=== PATIENT | male | born 1950 | race Caucasian/White ===

== ENCOUNTER → 2016-10-25 | Outpatient (CLI) | payer MEDICARE, BC ==
[~2016-10-25] MED LIST: ACETAMINOPHEN W1 TA6 PO; ASPIRIN 32325 MG/TAB PO; CLARITIN 1010 MG/TAB PO; CLARITIN REDITA10 MG PO; CO Q-1010 M1 PO; COREG 3.123.125 MG/T PO; COREG 6.256.25 MG/TA PO; COREG12.5 MG PO; COZAAR 25MG25 MG/TAB PO; DOXYCYCLINE 10100 MG PO; GLUCOPHAGE XR500 M1 PO; GLUCOPHAGE1000 MG PO; GLUCOPHAGE500 MG/TAB PO; IBUPROFEN400 MG PO; LASIX 20MG TABL20 MG PO; LEVAQUIN 5500 MG/TA1 PO; METOPROLOL SUCC25 MG PO; MOTRIN 600600 MG/TAB PO; MUCINEX 60600 MG/TA1 PO; NITROSTAT0.4 MG SL; PRINIVIL2.5 MG PO; PRINIVIL5 MG PO; THE MEDICINE S200 M2 PO; TOPROL XL 25MG25 MG PO; VASOTEC 2.2.5 MG/TAB PO; ZETIA10 MG PO; ZITHROMAX 250M250 MG PO; ZOCOR 10MG10 MG PO; ZOCOR 20MG20 MG PO
== END ==
LOC: COL.RAD 10:02
DX: M75.121 Complete rotator cuff tear or rupture of right shoulder, not specified as traumatic (principal); M19.011 Primary osteoarthritis, right shoulder; M25.511 Pain in right shoulder; R06.02 Shortness of breath

== ENCOUNTER 2018-05-19 14:48 | Outpatient (RCR) | payer SELFPAY | END 2018-05-20 | disposition home or self-care (01) | LOC: COL.CR | DX: Z02.9 Encounter for administrative examinations, unspecified (principal) ==

== ENCOUNTER 2018-08-18 13:12 | Outpatient (RCR) | payer SELFPAY | END 2018-08-19 | disposition home or self-care (01) | LOC: COL.CR | DX: Z02.9 Encounter for administrative examinations, unspecified (principal) ==

== ENCOUNTER 2018-11-17 15:31 | Outpatient (RCR) | payer SELFPAY | END 2018-11-18 | disposition home or self-care (01) | LOC: COL.CR | DX: Z02.89 Encounter for other administrative examinations (principal) ==

== ENCOUNTER 2019-02-16 13:04 | Outpatient (RCR) | payer SELFPAY | END 2019-02-17 | disposition home or self-care (01) | LOC: COL.CR | DX: Z02.89 Encounter for other administrative examinations (principal) ==

== ENCOUNTER → 2019-03-17 | Outpatient (CLI) | payer MEDICARE, BC | LOC: COL.RAD 09:45 | DX: M51.36 Other intervertebral disc degeneration, lumbar region (principal); M48.07 Spinal stenosis, lumbosacral region ==

== ENCOUNTER → 2019-04-07 | Outpatient (CLI) | payer MEDICARE, BC | LOC: COL.RAD 06:57 | DX: M46.86 Other specified inflammatory spondylopathies, lumbar region (principal) | CPT/HCPCS: J3301 ==

== ENCOUNTER 2019-05-18 15:06 | Outpatient (RCR) | payer SELFPAY | END 2019-05-19 | disposition home or self-care (01) | LOC: COL.CR | DX: Z02.89 Encounter for other administrative examinations (principal) ==

== ENCOUNTER 2019-08-17 15:56 | Outpatient (RCR) | payer SELFPAY | END 2019-08-18 | disposition home or self-care (01) | LOC: COL.CR | DX: Z02.89 Encounter for other administrative examinations (principal) ==

== ENCOUNTER 2019-11-11 13:06 | Outpatient (RCR) | payer SELFPAY | END 2019-11-17 | disposition home or self-care (01) | LOC: COL.CR | DX: Z02.89 Encounter for other administrative examinations (principal) ==

== ENCOUNTER 2019-12-23 11:01 | Outpatient (RCR) | payer SELFPAY ==
[2019-12-25] MEDS ORDERED: ZYRTEC ALLERGY10 MG PO (11:34)
[2019-12-25] MEDS ORDERED: SINGULAIR 110 MG/TAB PO (11:34)
[2019-12-25] MEDS ORDERED: GLUCOTROL XL2.5 MG PO (11:35)
[2019-12-25] MEDS ORDERED: ZOCOR 10MG10 MG PO (15:05)
[2019-12-25] MEDS ORDERED: ZETIA 10MG TAB10 MG PO (15:06)
[2019-12-26] MEDS ORDERED: BRILINTA90 MG PO (13:21)
[2019-12-26] MEDS ORDERED: ASPIRIN E.C. 8181 MG PO (13:22)
== END 2020-02-16 | disposition home or self-care (01) ==
LOC: COL.CR
DX: Z02.89 Encounter for other administrative examinations (principal)

== ENCOUNTER 2019-12-25 11:00 | Day surgery (SDC) | payer MEDICARE, BC ==
[~2019-12-25] VITALS: Ht 182.9 cm; Wt 109.7 kg
[2019-12-25] VITALS (10 sets, daily range): BP systolic 112–145; BP diastolic 64–90; PULSE 73–94; TEMP 97.5–98
[2019-12-25] MEDS ORDERED: SINGULAIR 110 MG/TAB PO (11:34)
[2019-12-25] MEDS ORDERED: ZYRTEC ALLERGY10 MG PO (11:34)
[2019-12-25] MEDS ORDERED: GLUCOTROL XL2.5 MG PO (11:35)
[2019-12-25 11:38] LABS: HEMATOCRIT 50.6 % (42.0-52.0); HEMOGLOBIN 16.8 g/dl (13.5-18.0); MEAN CELL VOLUME 96 fl (80.0-100.0); MEAN CORPUSCULAR HEMOGLOBIN 32 pg (27.0-31.0); MEAN CORPUSCULAR HGB CONC 33 g/dl (33.0-37.0); MEAN PLATELET VOLUME 9.7 fl (7.4-10.4); PLATELET COUNT 215 K/mm3 (130-400); RED BLOOD COUNT 5.28 M/mm3 (4.20-5.60); REDCELL DISTRIBUTION WIDTH-CV 13.2 % (11.5-14.5)
[2019-12-25 11:48] LABS: PROTHROMBIN TIME 11.1 SECONDS (9.7-12.8)
[2019-12-25 11:50] LABS: CALCIUM 9.5 mg/dL (8.4-10.2); CREATININE, serum 1.38 (0.66-1.25); POTASSIUM 4.2 mmol/L (3.4-5.0)
[2019-12-25 11:51] LABS: PARTIAL THROMBOPLASTIN TIME 29.8 SECONDS (26.0-37.0)
--- NOTE | 2019-12-25 13:01 | NUR ---
SEE MEREBETSY FOR ALL MEDICATION ADMIN TIMES AND INTRA/POST SEDATION ASSESSMENTS
--- NOTE | 2019-12-25 14:30 | NUR ---
Pt up to room 318 w/ at bedside. Pt A&O, independent in room. Pt has Rt radial site, CDI, no hematoma noted, good cap refill, TR band w/ 13cc of air on. LAC INT IV dc'd w/o complications. VS monitoring in progress. Pt provided w/ water and turkey sandwich to hold over until dinner.
[2019-12-25] MEDS ORDERED: ZOCOR 10MG10 MG PO (15:05)
[2019-12-25] MEDS ORDERED: ZETIA 10MG TAB10 MG PO (15:06)
--- NOTE | 2019-12-25 19:05 | NUR ---
Received report from Karolina. Seen patient walking around the room. He is alert and oriented. With arm band on his right radial. clean, dry and intact. Karolina just released 5 ml of air. Will conitnue to monitor for bleeding. With INT on left AC. Denies any pain.
--- NOTE | 2019-12-25 19:07 | NUR ---
173 Pt informed GATEKEEPER that he was ready to have band taken off. Air had not been removed from band at this time. This nurse walked into pt room, pt had removed TR band. No bleding noted at first, bandaid placed over site and then site started to bleed. Pressure held on site for 2 min and TR band placed back on and 133 cc air instilled. Pt educated on immportance of not removing air or band himself. Pt verbalized understanding. VSS have been stable, good cap refill. Bleeding had stopped. 1899 Report given to CELSO Living[place]. 5cc air removed from band, no bleeding noted. Good cap refill noted. No further needs expressed. Informed Pt that cnc machinist 2nd shift nurse would remove remaining air and to keep band on until she did.
--- NOTE | 2019-12-25 20:25 | NUR ---
Patient verbalized he is a bit jittery and needs something to help him sleep. This nurse called Dr. Love via phone call and he ordered Lizbeth.
--- NOTE | 2019-12-25 21:30 | NUR ---
Released air on patient's arm band. No bleeding noted. Arm band and splint removed. Applied bandaid.
[2019-12-26 00:20] VITALS: BP 133/78; PULSE 83; TEMP 98.6
[2019-12-26 03:28] VITALS: BP 123/75; PULSE 81; TEMP 98.6
--- NOTE | 2019-12-26 05:51 | NUR ---
Patient is already awake, sitting in the recliner. Right radial is clean, dry and intact. Bandaid still in place. Denies any pain. Will endorse to day shift nurse.
[2019-12-26 08:03] VITALS: BP 126/69; PULSE 79; TEMP 97.8
--- NOTE | 2019-12-26 08:08 | NUR ---
Patient is alert and oriented. denies any pain. Cardiac Cath insertion site - right radial is not bleeding, no redness or tenderness. patient verbalize readiness to go home
[2019-12-26 12:12] VITALS: BP 116/82; PULSE 77; TEMP 97.6
[2019-12-26] MEDS ORDERED: BRILINTA90 MG PO (13:21)
[2019-12-26] MEDS ORDERED: ASPIRIN E.C. 8181 MG PO (13:22)
--- NOTE | 2019-12-26 14:10 | NUR ---
there is no bleeding at cath insertion site. patient denies any complain or SOB. Vitals signs are stable. IV discontinued. recieved education about new medication. patient discharged.
== END 2019-12-26 13:55 | disposition home or self-care (01) ==
LOC: COL.CAR 11:00 → MEDICAL 14:46 → COL.CAR 12-26 13:55
PROVIDERS: Internal Medicine Cardiovascular Disease
DX: I25.10 Atherosclerotic heart disease of native coronary artery without angina pectoris (principal); I42.9 Cardiomyopathy, unspecified; I50.22 Chronic systolic (congestive) heart failure; I87.2 Venous insufficiency (chronic) (peripheral); R94.39 Abnormal result of other cardiovascular function study; Z79.82 Long term (current) use of aspirin; Z79.51 Long term (current) use of inhaled steroids; Z86.718 Personal history of other venous thrombosis and embolism; Z88.8 Allergy status to other drugs, medicaments and biological substances; Z83.3 Family history of diabetes mellitus; Z80.9 Family history of malignant neoplasm, unspecified
CPT/HCPCS: OP; C9600; J1644; J2250; J3010

== ENCOUNTER 2020-08-09 08:30 | Outpatient (RCR) | payer MEDICARE, BC ==
[~2020-08-09 08:30] MED LIST changes: +ASPIRIN E.C. 8181 MG PO; +BRILINTA90 MG PO; +GLUCOTROL XL2.5 MG PO; +SINGULAIR 110 MG/TAB PO; +ZETIA 10MG TAB10 MG PO; +ZYRTEC ALLERGY10 MG PO
== END 2020-08-17 09:51 | disposition home or self-care (01) ==
LOC: WSPT 08:30
DX: M48.02 Spinal stenosis, cervical region (principal)

== ENCOUNTER 2020-08-10 16:29 | Outpatient (RCR) | payer SELFPAY | END 2020-08-11 | disposition home or self-care (01) | LOC: COL.CR | DX: Z02.9 Encounter for administrative examinations, unspecified (principal) ==

== ENCOUNTER 2020-11-11 12:35 | Outpatient (RCR) | payer SELFPAY | END 2020-11-13 | disposition home or self-care (01) | LOC: COL.CR | DX: Z02.89 Encounter for other administrative examinations (principal) ==

== ENCOUNTER 2021-02-10 16:51 | Outpatient (RCR) | payer SELFPAY ==
[~2021-02-10 16:51] MED LIST changes: -NITROSTAT0.4 MG SL; +NITROSTAT0.4 MG/TAB SL
[2021-06-20] MEDS ORDERED: COREG 25MG25 MG/TAB PO (09:34)
[2021-06-20] MEDS ORDERED: LASIX 40MG TABL40 MG PO (09:35)
[2021-06-20] MEDS ORDERED: CRESTOR20 MG PO (09:37)
[2021-06-20] MEDS ORDERED: XARELTO10 MG PO (09:38)
[2021-06-20] MEDS ORDERED: KLONOPIN 1MG1 MG PO (09:39)
[2021-06-20] MEDS ORDERED: IMDUR 30MG30 MG/TAB PO (09:39)
[2021-06-20] MEDS ORDERED: TYLENOL W/COD1 UDTAB PO (09:40)
[2021-06-20] MEDS ORDERED: COZAAR 25MG25 MG/TAB PO (09:40)
== END 2021-02-12 | disposition still patient (30) ==
LOC: COL.CR
DX: Z02.89 Encounter for other administrative examinations (principal)

== ENCOUNTER 2021-05-17 16:22 | Outpatient (RCR) | payer SELFPAY ==
[2021-06-20] MEDS ORDERED: COREG 25MG25 MG/TAB PO (09:34)
[2021-06-20] MEDS ORDERED: LASIX 40MG TABL40 MG PO (09:35)
[2021-06-20] MEDS ORDERED: CRESTOR20 MG PO (09:37)
[2021-06-20] MEDS ORDERED: XARELTO10 MG PO (09:38)
[2021-06-20] MEDS ORDERED: KLONOPIN 1MG1 MG PO (09:39)
[2021-06-20] MEDS ORDERED: IMDUR 30MG30 MG/TAB PO (09:39)
[2021-06-20] MEDS ORDERED: TYLENOL W/COD1 UDTAB PO (09:40)
[2021-06-20] MEDS ORDERED: COZAAR 25MG25 MG/TAB PO (09:40)
== END 2021-05-18 | disposition home or self-care (01) ==
LOC: COL.CR
DX: Z02.89 Encounter for other administrative examinations (principal)

== ENCOUNTER 2021-12-29 12:57 | Outpatient (RCR) | payer SELFPAY ==
[~2021-12-29 12:57] MED LIST changes: +COREG 25MG25 MG/TAB PO; +CRESTOR20 MG PO; +IMDUR 30MG30 MG/TAB PO; +KLONOPIN 1MG1 MG PO; +LASIX 40MG TABL40 MG PO; +TYLENOL W/COD1 UDTAB PO; +XARELTO10 MG PO
== END 2022-01-04 ==
LOC: COL.CR
DX: Z29.8 Encounter for other specified prophylactic measures (principal)

== ENCOUNTER 2022-03-02 12:10 | Outpatient (RCR) | payer SELFPAY | END 2022-03-06 | LOC: COL.CR | DX: Z29.8 Encounter for other specified prophylactic measures (principal) ==

== ENCOUNTER 2022-04-04 14:56 | Outpatient (RCR) | payer SELFPAY | END 2022-04-05 | LOC: COL.CR | DX: Z29.8 Encounter for other specified prophylactic measures (principal) ==

== ENCOUNTER 2022-04-27 15:16 | Outpatient (RCR) | payer SELFPAY | END 2022-05-06 | LOC: COL.CR | DX: Z29.8 Encounter for other specified prophylactic measures (principal) ==

== ENCOUNTER → 2022-06-06 | Outpatient (RCR) | payer SELFPAY ==
[~2022-06-06] MED LIST changes: +JARDIANCE10; +SINGULAIR 110 MG/TAB; +XARELTO STARTER20 MG PO
== END ==
LOC: COL.CR
DX: Z29.8 Encounter for other specified prophylactic measures (principal)

== ENCOUNTER 2022-06-18 14:20 | Inpatient (IN) | payer MEDICARE, BC ==
[~2022-06-18] VITALS: Ht 180.3 cm; Wt 112.2 kg
[~2022-06-18 14:20] MED LIST changes: -JARDIANCE10; -SINGULAIR 110 MG/TAB; -XARELTO STARTER20 MG PO
[2022-06-18 14:58] LABS: BASO # 0.1 K/mm3 (0.0-0.2); BASO % 0.5 % (0.0-2.0); EOS # 0.2 K/mm3 (0.0-0.7); EOS % 1.3 % (0.0-4.0); GRAN # 8.5 K/mm3 (1.4-6.5); LYMPH # 1.8 K/mm3 (1.2-3.4); LYMPH % 15.5 % (20.0-51.0); MEAN CELL VOLUME 92 fl (80.0-100.0); MEAN CORPUSCULAR HGB CONC 34 g/dl (33.0-37.0); MEAN PLATELET VOLUME 10.4 fl (7.4-10.4); MONO % 8.4 % (1.7-9.3); PLATELET COUNT 154 K/mm3 (130-400); RED BLOOD COUNT 6.08 M/mm3 (4.20-5.60); REDCELL DISTRIBUTION WIDTH-CV 13.2 % (11.5-14.5)
[2022-06-18 15:00] LABS: HEMATOCRIT 55.7 % (42.0-52.0); MEAN CORPUSCULAR HEMOGLOBIN 31 pg (27-31)
[2022-06-18 15:12] LABS: INR 1.1 (0.8-3.0); PROTHROMBIN TIME 12.2 SECONDS (9.7-12.8)
[2022-06-18 15:29] LABS: CREATININE, serum 1.95 mg/dL (0.72-1.25); POTASSIUM 4.2 mmol/L (3.5-4.5)
[2022-06-18 15:30] LABS: BILIRUBIN,TOTAL 1.6 mg/dL (0.2-1.2); TOTAL PROTEIN 7.7 gm/dL (6.2-8.1); TROPONIN-I 0.023 ng/mL (0.00-0.033)
[2022-06-18 15:58] LABS: PARTIAL THROMBOPLASTIN TIME 33.9 SECONDS (26.0-37.0)
[2022-06-18 17:44] VITALS: BP 146/87; PULSE 89; TEMP 98
[2022-06-18] MEDS ORDERED: JARDIANCE10 ×2 (17:59→18:01)
[2022-06-18] MEDS ORDERED: SINGULAIR 110 MG/TAB (18:04)
--- NOTE | 2022-06-18 19:14 | NUR ---
Arrived to draw ABG, pt found on O2. Order states to do on room air after abulating to recreate SOA. Pt placed on room air, RN is going to ambulate pt and then call me to come draw ABG.
[2022-06-18 19:22] VITALS: BP 136/87; PULSE 100; TEMP 97.5
[2022-06-18 20:02] LABS: ARTERIAL BLD GAS O2 SATURATION 89.6 % (92-100); ARTERIAL BLD GAS TCO2 CT 23.8; ARTERIAL BLOOD GAS HCO3 22.8 meq/L (22-26); ARTERIAL BLOOD GAS PCO2 33.2 mmHg (35-45); ARTERIAL BLOOD GAS PO2 56.7 mmHg (80-100); ARTERIAL BLOOD GAS pH 7.46 (7.35-7.45)
--- NOTE | 2022-06-18 23:02 | NUR ---
PATIENT IN BED ON ROOM ENTRY. ALERT AND ORIENTED. C/O MODERATE LOW BACK PAIN AND CALL PLACED TO [facility] FOR TYLENOL. HS MEDS PER EMAR. REMAINS ON 3 L O2 VIA NC. L MEDINA REDDENED WITH SMALL SCAB NOTED. HEP XA WAS 1.09 AND WILL BE HELD FOR 2 HOURS AND RECHECKED AT 0100. DENIES ADDITIONAL NEEDS. CALL LIGHT IN PLACE.
[2022-06-19 00:17] VITALS: BP 138/91; PULSE 82; TEMP 97.5
[2022-06-19 04:32] LABS: COLLECTION METHOD CLEAN CATCH
[2022-06-19 04:33] VITALS: BP 133/79; PULSE 80; TEMP 97.9
[2022-06-19 04:41] LABS: SQUAMOUS EPITHELIAL None Seen /hpf (0-10); URINE BACTERIA None Seen /hpf (NONE SEEN); URINE RBC 0-2 /hpf (0-2)
[2022-06-19 04:42] LABS: PH 5.5 (5.0-8.5); URINE APPEARANCE Clear (CLEAR/HAZY); URINE BLOOD TRACE-INTACT (NEGATIVE); URINE COLOR Yellow (YELLOW); URINE GLUCOSE 3+ (NEGATIVE); URINE KETONE Negative (NEGATIVE); URINE NITRATE Negative (NEGATIVE); URINE PROTEIN(semi-quant) 1+ (NEGATIVE); URINE UROBILINOGEN 0.2 E.U/dL (0.2-1.0)
[2022-06-19 07:35] VITALS: BP 125/71; PULSE 83; TEMP 98.2
[2022-06-19 08:16] LABS: BASO # 0.1 K/mm3 (0.0-0.2); BASO % 0.9 % (0.0-2.0); EOS # 0.1 K/mm3 (0.0-0.7); EOS % 1.2 % (0.0-4.0); GRAN # 6.6 K/mm3 (1.4-6.5); GRAN % 71.1 % (42.2-75.2); LYMPH # 1.7 K/mm3 (1.2-3.4); LYMPH % 17.8 % (20.0-51.0); MEAN CELL VOLUME 93 fl (80.0-100.0); MEAN CORPUSCULAR HGB CONC 34 g/dl (33.0-37.0); MEAN PLATELET VOLUME 10.2 fl (7.4-10.4); MONO # 0.8 K/mm3 (0.1-0.6); MONO % 8.6 % (1.7-9.3); PLATELET COUNT 143 K/mm3 (130-400); RED BLOOD COUNT 6.17 M/mm3 (4.20-5.60); REDCELL DISTRIBUTION WIDTH-CV 13.4 % (11.5-14.5)
[2022-06-19 08:17] LABS: HEMATOCRIT 57.5 % (42.0-52.0); HEMOGLOBIN 19.4 g/dl (13.5-18.0); MEAN CORPUSCULAR HEMOGLOBIN 31 pg (27-31)
[2022-06-19 08:26] LABS: ALBUMIN 4.1 gm/dL (3.4-4.8); BILIRUBIN,TOTAL 1.9 mg/dL (0.2-1.2); CALCIUM 10.4 mg/dL (8.4-10.2); CREATININE, serum 1.89 mg/dL (0.72-1.25); POTASSIUM 4.4 mmol/L (3.5-4.5); TOTAL PROTEIN 8.1 gm/dL (6.2-8.1)
--- NOTE | 2022-06-19 09:19 | NUR ---
HEPARIN RESULTED WITH NO CHANGE IN RATE, RECHECK IN 6 HRS
--- NOTE | 2022-06-19 10:00 | NUR ---
PT UP WITH SBA, TO [employer] FOR VQ SCAN AT THIS TIME.. PT IS A/O X3 LUNGS CTA, BOWEL SOUNDS PRESENT. PT DENIES PAIN OR NEEDS AT THIS TIME.
[2022-06-19 12:20] VITALS: BP 110/61; PULSE 93; TEMP 98.2
--- NOTE | 2022-06-19 15:23 | NUR ---
bench worker helper met with patient to complete intake and discuss discharge plan. Upon entry, patient sitting on EOB with head down. Patient agrees to complete intake, but mood appears melancholy with a restricted affect. Patient verbalizes that he lives at home in [place] with his Ya. Patient is independent with his ADL's and utilizes a rollator walker to assist with mobility, however he is observed ambulating in the room freely with no devices. He reports to no home oxygen needs but is currently at 2L in room. PCP is and he utilizes [facility] for prescriptions with no cost difficulty. Patient reports that he does not have a DPOA-HC and denies offer to create one at this time. He is planning on returning home once medically ready. Discharge plan: Home with spouse
[2022-06-19 16:02] VITALS: BP 130/73; PULSE 87; TEMP 97.5
[2022-06-19 23:36] VITALS: BP 130/83; PULSE 81; TEMP 98.1
--- NOTE | 2022-06-20 00:39 | NUR ---
PATIENT ALERT AND ORIENTED X 4, WITH HEPARIN DRIP RUNNING AT 1800UNITS/HR, HEPXA RECHECKED AT 0230, COMPLAINED OF LOWER BACK PAIN TYLENOL GIVEN AT 2355, CLONAZEPAM GIVEN WELL PER REQUEST TO HELP HIM SLEEP, ON TELE SHOWING SR WITH PACS, NO FURTHER NEEDS OR CONCERNS AT THIS TIME, CALL LIGHT AND PERSONAL ITEMS WITHIN REACH.
[2022-06-20 05:14] VITALS: BP 145/89; PULSE 86
--- NOTE | 2022-06-20 05:15 | NUR ---
NOTIFIED BY STAFF NURSE THAT PATIENT WAS UP IN ROOM TRYING TO GET TO BATHROOM, HAD UNHOOKED HIS HEPARIN AND SEEMED CONFUSED. ON ASSESSMENT VSS, PATIENT ALERT TO SELF, BUT CONFUSED ABOUT SITUATION AND WHERE HE IS. STATES HE IS IN THE [employer] AND THAT QUIN[employer] MINOR IS THE PRESIDENT WHEN ASKED. CALL PLACED TO [facility] TO NOTIFY OF PATIENT CHANGE OF STATUS. PATIENT ASSISTED BACK TO CHAIR. CALL FROM [facility] AND ORDER FOR ABG. CALL TO RT AND AWAITING DRAW.
[2022-06-20 05:38] LABS: ARTERIAL BLD GAS O2 SATURATION 93.6 % (92-100); ARTERIAL BLD GAS TCO2 CT 25.2; ARTERIAL BLOOD GAS BASE EXCESS 0.2 (-2-2); ARTERIAL BLOOD GAS PCO2 37.1 mmHg (35-45); ARTERIAL BLOOD GAS PO2 69.3 mmHg (80-100); ARTERIAL BLOOD GAS pH 7.43 (7.35-7.45)
[2022-06-20 07:29] LABS: COLLECTION METHOD CLEAN CATCH
[2022-06-20 07:46] VITALS: BP 119/70; PULSE 89; TEMP 98.1
[2022-06-20 07:51] LABS: SQUAMOUS EPITHELIAL None Seen /hpf (0-10); URINE BACTERIA None Seen /hpf (NONE SEEN); URINE RBC 0-2 /hpf (0-2)
[2022-06-20 07:52] LABS: BASO # 0.1 K/mm3 (0.0-0.2); BASO % 0.8 % (0.0-2.0); EOS # 0.1 K/mm3 (0.0-0.7); EOS % 1.8 % (0.0-4.0); GRAN # 3.5 K/mm3 (1.4-6.5); GRAN % 57.3 % (42.2-75.2); LYMPH # 1.6 K/mm3 (1.2-3.4); LYMPH % 26.9 % (20.0-51.0); MEAN CELL VOLUME 93 fl (80.0-100.0); MEAN CORPUSCULAR HGB CONC 34 g/dl (33.0-37.0); MEAN PLATELET VOLUME 10.2 fl (7.4-10.4); MONO # 0.8 K/mm3 (0.1-0.6); MONO % 12.9 % (1.7-9.3); PLATELET COUNT 143 K/mm3 (130-400); RED BLOOD COUNT 5.88 M/mm3 (4.20-5.60); REDCELL DISTRIBUTION WIDTH-CV 13.2 % (11.5-14.5)
[2022-06-20 07:52] LABS: PH 5.5 (5-8); URINE APPEARANCE Clear (CLEAR/HAZY); URINE BLOOD TRACE-INTACT (NEGATIVE); URINE COLOR Yellow (YELLOW); URINE GLUCOSE 3+ (NEGATIVE); URINE KETONE Negative (NEGATIVE); URINE NITRATE Negative (NEGATIVE); URINE PROTEIN(semi-quant) TRACE (NEGATIVE); URINE UROBILINOGEN 0.2 (NEGATIVE)
[2022-06-20 07:54] LABS: HEMATOCRIT 54.4 % (42.0-52.0); HEMOGLOBIN 18.3 g/dl (13.5-18.0); MEAN CORPUSCULAR HEMOGLOBIN 31 pg (27-31)
[2022-06-20 08:07] LABS: CALCIUM 9.5 mg/dL (8.4-10.2); CREATININE, serum 1.74 mg/dL (0.72-1.25); MAGNESIUM 2.3 mg/dL (1.6-2.6); POTASSIUM 3.8 mmol/L (3.5-4.5)
--- NOTE | 2022-06-20 08:39 | NUR ---
PT UP INDEPENDENTLY IN ROOM. VOIDED THEN RETURNED TO BED. O2 SATS WERE MID 80'S ON 1LPNC INCREASED TO 3 L AND SATS INCREASED TO 98 %.
[2022-06-20] MEDS ORDERED: XARELTO STARTER20 MG PO ×2 (09:09→09:24)
--- NOTE | 2022-06-20 09:28 | NUR ---
Initial visit; Patient thanked Customer Relationship Specialist for stopping and stated that he is ready to go home. Customer Relationship Specialist offered empathy and God's blessings. Patient seems uncomfortable being here but appears to not have a diagnosis or is just not physically ready to be discharged. Prayerfully a Physician will help him reach his goal soon.
--- NOTE | 2022-06-20 10:25 | NUR ---
PT DOES NOT REQUIRE 02 WITH AMBULATION
--- NOTE | 2022-06-20 11:08 | NUR ---
DISCHARGE INSTRUCTIONS REVIEWED WITH PT AND . QUESTIONS SOLICITED AND ANSWERED. PT LEFT FLOOR BY WHEEL CHAIR WITH STAFF.
== END 2022-06-20 11:13 | disposition home or self-care (01) | DRG 189 ==
LOC: COL.ER 14:20 → SURG 15:40
PROVIDERS: Emergency Medicine; Internal Medicine Interventional Cardiology; Physician Assistant; Student in an Organized Health Care Education/Training Program; ADMIT Student in an Organized Health Care Education/Training Program
DX: J96.01 Acute respiratory failure with hypoxia (principal); N17.9 Acute kidney failure, unspecified; E87.2 Acidosis; L03.115 Cellulitis of right lower limb; I50.22 Chronic systolic (congestive) heart failure; G47.30 Sleep apnea, unspecified; Z20.822 Contact with and (suspected) exposure to COVID-19; E78.5 Hyperlipidemia, unspecified; I25.10 Atherosclerotic heart disease of native coronary artery without angina pectoris; E11.65 Type 2 diabetes mellitus with hyperglycemia; I25.2 Old myocardial infarction; Z86.718 Personal history of other venous thrombosis and embolism; Z88.8 Allergy status to other drugs, medicaments and biological substances; Z95.5 Presence of coronary angioplasty implant and graft; Z90.49 Acquired absence of other specified parts of digestive tract; Z79.01 Long term (current) use of anticoagulants; Z79.84 Long term (current) use of oral hypoglycemic drugs; Z23 Encounter for immunization
CPT/HCPCS: A9540; A9567; J1644; J1815; J1940

== ENCOUNTER → 2023-10-11 | Outpatient (CLI) | payer MEDICARE, BC ==
[~2023-10-11] VITALS: Ht 180.3 cm; Wt 115.0 kg
[~2023-10-11] MED LIST changes: +ALDACTONE 25MG25 M1 PO; +JARDIANCE10; +JARDIANCE10 PO; +MASON NATURAL2000 IU PO; +REMERON 15M15 MG/TA1 PO; +SINGULAIR 110 MG/TAB; +XARELTO STARTER20 MG PO; +XARELTO20 MG PO; +ZITHROMAX 250M250 MG; +ZYRTEC 10MG10 MG PO
[2023-10-11 11:23] VITALS: BP 133/85; PULSE 102; TEMP 98.5
[2023-10-11 13:45] VITALS: BP 128/80; PULSE 87
== END ==
LOC: COL.RAD 10:45
DX: I86.8 Varicose veins of other specified sites (principal); H53.2 Diplopia
CPT/HCPCS: A9575; J2250; J2704; J3010